=== PATIENT | female | born 1960 | race Caucasian/White ===

== ENCOUNTER 2017-01-26 13:46 | Emergency (ER) | payer OTHER ==
[~2017-01-26] VITALS: Ht 160 cm; Wt 59.0 kg
--- NOTE | ~2017-01-26 | EKG ---
[address] [address] ELECTROCARDIOGRAM REPORT Name: NENO SOLIS Room #: DEP [place]#: [id number] Admission: 01/26/17 Attend Phys: Discharge: 01/26/17 Date of : 60 Report #: [id number] THIS REPORT FOR: //name// [facility] ED Test Date: 2017-01-26 Test Time: 13:55:32 Pat Name: NENO SOLIS Department: Room: Gender: F Director Of Corporate Communications: [id number] : [id number] Requested By: Vani Savage Order Number: [id number] MD: Jerry Garcia Measurements Intervals [place] Rate: 77 P: 68 AK: 158 QRS: 61 QRSD: 100 T: 52 QT: 394 QTc: 446 Interpretive Statements Sinus rhythm No previous ECG available for comparison Electronically Signed On 01-26-2017 22:41:25 CDT by Jerry Garcia [email or web address] <ELECTRONICALLY SIGNED> By: Jerry Garcia MD 01/26/17 2241 1355 1355 MD JERMAIN Gamez
[2017-01-26] MEDS ORDERED: IBUPROFEN 200200 M1 PO (14:03)
[2017-01-26 14:09] LABS: ABSOLUTE NEUTROPHILS 3.9 thou/uL (1.4-8.2); BASOPHILS 0.4 % (0.0-2.0); EOSINOPHILS 0.8 % (0.0-3.0); HEMATOCRIT 41.9 % (37.0-47.0); LYMPHOCYTES 28.5 % (24.0-44.0); MCH 30.4 pg (26.0-34.0); MCHC 33.5 g/dL (28.0-37.0); MCV 90.9 fL (80.0-100.0); MONOCYTES 7.3 % (1.0-8.0); PLATELET COUNT 272 thou/uL (150-400); RBC 4.61 mil/uL (4.20-5.00); RDW 13.3 % (10.5-14.5); WBC 6.1 thou/uL (4.0-11.0)
[2017-01-26 14:11] LABS: MANUAL DIFF NO
[2017-01-26 14:26] LABS: ANION GAP 7 mmol/L (7-16); BUN 16 mg/dL (7-18); CALCIUM 9.2 mg/dL (8.5-10.1); CHLORIDE 102 mmol/L (98-107); CO2 29 mmol/L (21-32); CREATININE 0.8 mg/dL (0.6-1.0); GLUCOSE 122 mg/dL (74-106); POTASSIUM 3.9 mmol/L (3.5-5.1); SODIUM 138 mmol/L (136-145); TROPONIN-I < 0.04 ng/mL (<0.04-0.07)
[2017-01-26] MEDS ORDERED: PREDNISONE 10 M10 MG PO (14:58)
[2017-01-26] MEDS ORDERED: ACYCLOVIR 400400 MG PO (14:58)
[2017-01-26 15:25] VITALS: BP 124/63
== END 2017-01-26 15:25 | disposition home or self-care (01) ==
LOC: ER 13:46
PROVIDERS: Emergency Medicine
DX: G51.0 Bell's palsy (principal); F10.99 Alcohol use, unspecified with unspecified alcohol-induced disorder